=== PATIENT | female | born 1950 | race Caucasian/White ===

== ENCOUNTER → 2018-02-09 | Outpatient (CLI) | payer MEDICARE, OTHER | LOC: GMAE 10:51 | PROVIDERS: ATTEND Family Medicine | DX: E03.9 Hypothyroidism, unspecified (principal) ==

== ENCOUNTER → 2018-06-08 | Outpatient (CLI) | payer MEDICARE, OTHER ==
--- NOTE | 2018-06-09 11:38 | RAD ---
EXAM DESCRIPTION: Knee,Left Complete: CR/DR/XR. CLINICAL HISTORY: 67 years [id number], [id number] COMPARISON: AP view of the pelvis on the same visit. TECHNIQUE: 4 views AP standing, AP standing 45 degrees flexion, patellar sunrise, and lateral left knee. FINDINGS: Decreased bone density. Medial and lateral compartments are symmetric narrowing lateral compartment. Superior and inferior patellar spurs. Trace suprapatellar effusion. No abnormal radiodense objects in the soft tissues. No fracture. IMPRESSION: Decreased bone density left knee. 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 No acute bony or joint margin abnormalities. Electronically signed by: Kenneth Price MD 06/09/2018 11:35 AM CDT
== END ==
LOC: RAD 08:57
PROVIDERS: ATTEND Orthopaedic Surgery
DX: M85.862 Other specified disorders of bone density and structure, left lower leg (principal); M17.12 Unilateral primary osteoarthritis, left knee

== ENCOUNTER → 2019-06-21 | Outpatient (CLI) | payer MEDICARE, OTHER | LOC: GMAE 11:27 | PROVIDERS: ATTEND Family Medicine | DX: E03.9 Hypothyroidism, unspecified (principal); Z79.899 Other long term (current) drug therapy ==